=== PATIENT | male | born 1960 | race Caucasian/White ===

== ENCOUNTER 2019-06-21 17:23 | Emergency (ER) | payer OTHER ==
--- NOTE | 2019-06-21 17:49 | ERPHSYRPT ---
- History of Present Illness Time Seen by Provider: 06/21/19 17:46 Source: patient, family Exam Limitations: no limitations Patient Subjective Stated Complaint: pt reports hypotension, recent addition of blood pressure medication. states he is now taking lisinopril 5mg daily. states early today he was feeling dizzy but denies that symptom at this time. daughter recorded blood pressure prior to arrival at 90/60. Triage Nursing Assessment: pt is aox3, pt ambulates to trt room w steady gait. pupils perrl, afebrile, resps easy and non labored, radial pulses strong and equal, cap refill < 3 seconds, pt skin pink warm dry. feeding tube in place to mid abdomen. Physician History: Mr Stewart is a 59 years old male states early today he was feeling dizzy but denies that symptom at this time. daughter recorded blood pressure prior to arrival at 90/60. Timing/Duration: today Associated Symptoms: other (dizziness, light headedness), No chest pain Allergies/Adverse Reactions: No Known Drug Allergies Allergy (Unverified 06/21/19 17:49) Home Medications: Atorvastatin Calcium [Lipitor] 40 mg PO DAILY 06/21/19 [History] Lisinopril [Zestril] 5 mg PO DAILY 06/21/19 [History] hydroCHLOROthiazide [Hydrochlorothiazide] 12.5 mg PO DAILY 06/21/19 [History] Hx Tetanus, Diphtheria Vaccination/Date Given: (unk) Hx Influenza Vaccination/Date Given: No Hx Pneumococcal Vaccination/Date Given: No Immunizations Up to Date: Yes - Review of Systems Constitutional: No Fever, No Chills Eyes: No Symptoms Ears, Nose, & Throat: No Symptoms Respiratory: No Cough, No Dyspnea Cardiac: Other (lightheadedness and low blood pressure), No Chest Pain, No Edema , No Palpitations, No Syncope Abdominal/Gastrointestinal: No Abdominal Pain, No Nausea, No Vomiting, No Diarrhea Genitourinary Symptoms: No Dysuria Musculoskeletal: No Back Pain, No Neck Pain Skin: No Rash Neurological: Dizziness, No Focal Weakness, No Sensory Changes Psychological: No Symptoms Endocrine: No Symptoms All Other Systems: Reviewed and Negative - Past Medical History Pertinent Past Medical History: Yes Cardiac History: High Cholesterol, Hypertension Other Medical History: ORAL CANCER Nov 2018 - Past Surgical History Past Surgical History: Yes Other Surgical History: oral surgery to remove cancer w tongue reconstruction - Social History Smoking Status: Former smoker Drug Use: none Patient Lives Alone: No - Nursing Vital Signs Nursing Vital Signs: Initial Vital Signs Temperature 97.4 F 06/21/19 17:33 Pulse Rate 69 06/21/19 17:33 Respiratory Rate 20 06/21/19 17:33 Blood Pressure 109/91 06/21/19 17:33 O2 Sat by Pulse Oximetry 95 06/21/19 17:33 Pain Scale Pain Intensity 0 - Physical Exam General Appearance: no apparent distress, alert Eye Exam: PERRL/EOMI, eyes nml inspection Ears, Nose, Throat Exam: normal ENT inspection, TMs normal, pharynx normal, moist mucous membranes Neck Exam: normal inspection, non-tender, supple, full range of motion Respiratory Exam: normal breath sounds, lungs clear, No respiratory distress Cardiovascular Exam: regular rate/rhythm, normal heart sounds, normal peripheral pulses Gastrointestinal/Abdomen Exam: soft, normal bowel sounds, No tenderness, No mass Back Exam: normal inspection, normal range of motion, No CVA tenderness, No vertebral tenderness Extremity Exam: normal inspection, normal range of motion, pelvis stable Neurologic Exam: alert, oriented x 3, cooperative, normal mood/affect, nml cerebellar function, nml station & gait, sensation nml, No motor deficits Skin Exam: normal color, warm, dry, No rash Lymphatic Exam: No adenopathy SpO2: 95 - Course Nursing assessment & vital signs reviewed: Yes EKG Interpreted by Me: Sinus Rhythm Ordered Tests: Medication Summary Discontinued Medications Generic Name Dose Route Start Last Admin Trade Name Jovana PRN Reason Stop Dose Admin Potassium Bicarbonate 50 meq 06/21/19 18:18 06/21/19 18:33 K-Lyte 25 Meq PO 06/21/19 18:19 50 meq STAT ONE Administration Potassium Bicarbonate Confirm 06/21/19 18:28 K-Lyte 25 Meq Administered 06/21/19 18:29 Dose 50 meq .ROUTE .STK-MED ONE Lab/Rad Data: Laboratory Result Diagrams 06/21/19 17:52 06/21/19 17:52 Laboratory Results 06/21/19 06/21/19 06/21/19 Range/Units 17:52 17:52 17:52 WBC 10.0 (4.0-10.5) K/mm3 RBC 3.46 L (4.1-5.6) M/mm3 Hgb 12.0 L (12.5-18.0) gm/dl Hct 34.9 L (42-50) % MCV 100.9 H (78-100) fl MCH 34.6 H (26-32) pg MCHC 34.4 (32-36) g/dl RDW 12.3 (11.5-14.0) % Plt Count 182 (150-450) K/mm3 MPV 8.7 (6-9.5) fl Gran % 67.5 H (36.0-66.0) % Eos # (Auto) 0.18 (0-0.5) Absolute Lymphs (auto) 1.69 (1.0-4.6) Absolute Monos (auto) 1.37 H (0.0-1.3) Lymphocytes % 16.8 L (24.0-44.0) % Monocytes % 13.7 H (0.0-12.0) % Eosinophils % 1.8 (0.00-5.0) % Basophils % 0.2 (0.0-0.4) % Absolute Granulocytes 6.77 (1.4-6.9) Basophils # 0.02 (0-0.4) Sodium 138 (137-145) mmol/L Potassium 3.3 L (3.5-5.1) mmol/L Chloride 99 (98-107) mmol/L Carbon Dioxide 27 (22-30) mmol/L Anion Gap 15.2 H (5-15) MEQ/L BUN 14 (9-20) mg/dL Creatinine 1.38 H (0.66-1.25) mg/dL Estimated GFR 55.7 ML/MIN Glucose 130 H (74-106) mg/dL Calcium 9.2 (8.4-10.2) mg/dL Total Bilirubin 0.40 (0.2-1.3) mg/dL AST 43 (17-59) U/L ALT 26 (0-50) U/L Alkaline Phosphatase 73 (38-126) U/L Troponin I < 0.012 (0.000-0.034) ng/mL NT-Pro-B Natriuret Pep 458 (0-900) pg/mL Serum Total Protein 7.6 (6.3-8.2) g/dL Albumin 4.4 (3.5-5.0) g/dL - Progress Progress: improved Counseled pt/family regarding: lab results, diagnosis, need for follow-up - Departure Departure Disposition: Home Clinical Impression: Hypotension due to drugs CAD (coronary artery disease) Qualifiers: Coronary Disease-Associated Artery/Lesion type: [place] artery [place] vs. transplanted heart: [place] heart Associated angina: without angina Qualified Code(s): I25.10 - Atherosclerotic heart disease of [place] coronary artery without angina pectoris Condition: Stable Critical Care Time: No Referrals: DOCTOR,NO FAMILY [Primary Care Provider] - Instructions: Orthostatic Hypotension (DC), Low Blood Pressure (DC) Additional Instructions: Discharge/Care Plan LARA ALFRED was seen on 06/21/19 in the Emergency Room. The patient was counseled regarding Diagnosis,Lab results, Imaging studies, need for follow up and when to return to the Emergency Room. Prescriptions given: Discharge Note I have spoken with the patient and/or caregivers. I have explained the patient' s condition, diagnosis and treatment plan based on the information available to me at this time. I have answered the patient's and/or caregiver's questions and addressed any concerns. The patient and/or caregivers have as good understanding of the patient's diagnosis, condition and treatment plan as can be expected at this point. The vital signs have been stable. The patient's condition is stable and appropriate for discharge from the emergency department. The patient will pursue further outpatient evaluation with the primary care physician or other designated or consulting physician as outlined in the discharge instructions. The patient and/or caregivers are agreeable to this plan of care and follow-up instructions have been explained in detail. The patient and/or caregivers have received these instruction. The patient/and or caregivers are aware that any significant change in condition or worsening of symptoms should prompt an immediate return to this or the closest emergency department or call 911. Decrease lisinopril to 2.5 mg orally in Morning with hydrochlorothiazide 25 mg in morning, Take atrovastatin at night. Follow up with your primary care physician in next 2-3 days Prescriptions: Potassium Chloride [K-Dur] 10 meq PO DAILY #30 [email or web address]
[2019-06-21 17:55] LABS: BASOPHIL % 0.2 % (0.0-0.4); Basophil (Absolute #) 0.02 (0-0.4); Eosinophil % 1.8 % (0.00-5.0); Eosinophil (Absolute #) 0.18 (0-0.5); Granulocyte Absolute (ANC) 6.77 (1.4-6.9); Granulocytes % 67.5 % (36.0-66.0); Hematocrit 34.9 % (42-50); Lymphocyte (Absolute #) 1.69 (1.0-4.6); Lymphocytes % 16.8 % (24.0-44.0); Mean Cell Volume 100.9 fl (78-100); Mean Corpuscular Hgb Concent. 34.4 g/dl (32-36); Mean Platelet Volume 8.7 fl (6-9.5); Monocyte (Absolute #) 1.37 (0.0-1.3); Monocytes % 13.7 % (0.0-12.0); Platelet Count 182 K/mm3 (150-450); Red Blood Count 3.46 M/mm3 (4.1-5.6); Red Cell Distribution Width 12.3 % (11.5-14.0)
[2019-06-21 17:56] LABS: Mean Corpuscular Hemoglobin 34.6 pg (26-32)
[2019-06-21 18:11] VITALS: BP 99/59; PULSE 62
[2019-06-21 18:13] LABS: ALBUMIN 4.4 g/dL (3.5-5.0); ANION GAP 15.2 MEQ/L (5-15); BILIRUBIN,TOTAL 0.4 mg/dL (0.2-1.3); Calcium 9.2 mg/dL (8.4-10.2); Creatinine 1 1.38 mg/dL (0.66-1.25); Potassium 3.3 mmol/L (3.5-5.1); Total Protein 7.6 g/dL (6.3-8.2)
[2019-06-21] MEDS ORDERED: K-LYTE 25 MEQ PO ONE (18:18)
[2019-06-21 18:20] VITALS: O2SAT 95
[2019-06-21] MEDS ORDERED: K-LYTE 25 MEQ ONE (18:28)
== END 2019-06-21 19:00 | disposition home or self-care (01) ==
LOC: ED 17:23
DX: I95.2 Hypotension due to drugs (principal); I25.10 Atherosclerotic heart disease of native coronary artery without angina pectoris
CPT/HCPCS: 36415; 80053; 83880; 84484; 85025; 93005; 93041; 99284; 99291; A9270-GY

== ENCOUNTER 2021-08-06 16:55 | Observation (INO) | payer OTHER ==
[2021-08-06] MEDS ORDERED: BABY ASPIRIN 81 MG CHEW PO ONE (17:27)
--- NOTE | 2021-08-06 17:33 | ERPHSYRPT ---
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 pt reports pain goes from 0 to 10 intermittently and pain is intense and sharp when occuring. pt denies any sob or chest pain Triage Nursing Assessment: pt to er left shoulder pain pt arrives p/w/d resp easy a@ox3. pt speech garbled though states has been drinking today. pt jaundice w/d resp easy a@ox3. pt has son here driving him Physician History: 61 years old male with history of tobacco abuse, alcohol abuse, hypertension presented in the ER with chief complaint of left shoulder pain sudden onset around 1 PM today while he was pulling nails out of a board. Intermittent, sharp moderate to severe intensity without any significant aggravating or relieving factors, last for few seconds to minutes and improves. Denies any difficulty movements of left shoulder are any tender points. No previous history of shoulder injuries. Denies any chest pain, palpitations or shortness of breath. Patient is a heavy drinker and last drink was prior to arrival. Timing/Duration: hour(s) (5), intermittent, sudden, improved Severity: moderate Modifying Factors: Improves With: rest Associated Symptoms: denies symptoms Allergies/Adverse Reactions: No Known Drug Allergies Allergy (Verified 08/06/21 16:58) Home Medications: Omeprazole 40 mg PO DAILY 08/06/21 [History] Hx Tetanus, Diphtheria Vaccination/Date Given: No Hx Influenza Vaccination/Date Given: Yes (08/03/21) Hx Pneumococcal Vaccination/Date Given: No Travel Risk - International Travel Have you traveled outside of the country in past 3 weeks: No - Coronavirus Screening Are you exhibiting any of the following symptoms?: No Close contact with a COVID-19 positive Pt in past 14-21 Days: No - Vaccine Status Have you recieved a Covid-19 vaccination: Yes [employer]: [employer] - Vaccination Dates Date of 2cond Vaccination (if applicable): 01/13/21 - Review of Systems Constitutional: No Symptoms Eyes: No Symptoms Ears, Nose, & Throat: No Symptoms Respiratory: No Symptoms Cardiac: No Symptoms Abdominal/Gastrointestinal: No Symptoms Genitourinary Symptoms: No Symptoms Musculoskeletal: Joint Pain Skin: No Symptoms Neurological: No Symptoms Psychological: Anxiety Endocrine: No Symptoms Hematologic/Lymphatic: No Symptoms Immunological/Allergic: No Symptoms - Past Medical History Pertinent Past Medical History: Yes Cardiac History: High Cholesterol, Hypertension Other Medical History: ORAL CANCER Nov 2018 - Past Surgical History Past Surgical History: Yes Other Surgical History: oral surgery to remove cancer w tongue reconstruction 11/2018 - Social History Smoking Status: Current every day smoker Drug Use: none Patient Lives Alone: No - Nursing Vital Signs Nursing Vital Signs: Initial Vital Signs Temperature 98.2 F 08/06/21 17:00 Pulse Rate 88 08/06/21 17:00 Respiratory Rate 18 08/06/21 17:00 Blood Pressure 186/124 08/06/21 17:00 O2 Sat by Pulse Oximetry 100 08/06/21 17:00 Pain Scale Pain Intensity 5 - Physical Exam General Appearance: no apparent distress Eye Exam: PERRL/EOMI Ears, Nose, Throat Exam: normal ENT inspection, pharynx normal Neck Exam: normal inspection, supple, full range of motion Respiratory Exam: normal breath sounds, lungs clear Cardiovascular Exam: regular rate/rhythm, normal heart sounds Gastrointestinal/Abdomen Exam: soft, normal bowel sounds Back Exam: normal inspection, normal range of motion, No CVA tenderness Extremity Exam: normal inspection, normal range of motion, pelvis stable Neurologic Exam: alert, oriented x 3, cooperative Skin Exam: normal color SpO2 Interpretation: normal SpO2: 100 O2 Delivery: Room Air - Course EKG Interpreted by Me: RATE (87), Sinus Rhythm, NORMAL AXIS, NORMAL INTERVALS, Other (PACs) Ordered Tests: Active Orders 24 hr Category Date Time Status Clinical Laboratory Manager STAT Care 08/06/21 17:28 Active EKG-ER Only STAT Care 08/06/21 17:27 Active IV Insertion STAT Care 08/06/21 17:27 Active CHEST 1 VIEW (PORTABLE) Stat Exams 08/06/21 17:28 Taken SHOULDER Stat Exams 08/06/21 Taken CBC W DIFF Stat Lab 08/06/21 17:27 Completed CK-Creatinine Phosphokinase Routine Lab 08/06/21 17:30 Completed CMP Routine Lab 08/06/21 17:30 Completed ETHYL ALCOHOL Routine Lab 08/06/21 17:30 Completed NT PRO BNP Routine Lab 08/06/21 17:30 Completed TROPONIN Q3H Lab 08/06/21 17:30 Completed TROPONIN Q3H Lab 08/06/21 20:30 Ordered TROPONIN Q3H Lab 08/06/21 23:30 Ordered TROPONIN Q3H Lab 08/07/21 02:30 Ordered TROPONIN Q3H Lab 08/07/21 05:30 Ordered Medication Summary Discontinued Medications Generic Name Dose Route Start Last Admin Trade Name Jovana PRN Reason Stop Dose Admin Aspirin 324 mg 08/06/21 17:27 08/06/21 17:36 Aspirin 81 Mg Tab.Chew PO 08/06/21 17:28 324 mg STAT ONE Administration Ketorolac Tromethamine 30 mg 08/06/21 19:01 08/06/21 19:08 Ketorolac Tromethamine 30 Mg/Ml Inj IV 08/06/21 19:02 30 mg STAT ONE Administration Ketorolac Tromethamine Confirm 08/06/21 19:05 Ketorolac Tromethamine 30 Mg/Ml Inj Administered 08/06/21 19:06 Dose 30 mg .ROUTE .STK-MED ONE Lab/Rad Data: Laboratory Result Diagrams 08/06/21 17:27 08/06/21 17:30 Laboratory Results 08/06/21 08/06/21 Range/Units 17:30 17:27 WBC 7.0 (4.0-10.5) K/mm3 RBC 3.65 L (4.1-5.6) M/mm3 Hgb 12.4 L (12.5-18.0) gm/dl Hct 37.3 L (42-50) % MCV 102.2 H (78-100) fl MCH 34.0 H (26-32) pg MCHC 33.2 (32-36) g/dl RDW 13.1 (11.5-14.0) % Plt Count 237 (150-450) K/mm3 MPV 9.0 (7.5-11.0) fl Gran % 47.9 (36.0-66.0) % Eos # (Auto) 0.18 (0-0.5) Absolute Lymphs (auto) 2.57 (1.0-4.6) Absolute Monos (auto) 0.85 (0.0-1.3) Lymphocytes % 36.9 (24.0-44.0) % Monocytes % 12.2 H (0.0-12.0) % Eosinophils % 2.6 (0.00-5.0) % Basophils % 0.4 (0.0-0.4) % Absolute Granulocytes 3.34 (1.4-6.9) Basophils # 0.03 (0-0.4) Sodium 138 (137-145) mmol/L Potassium 3.8 (3.5-5.1) mmol/L Chloride 100 (98-107) mmol/L Carbon Dioxide 25 (22-30) mmol/L Anion Gap 16.1 H (5-15) MEQ/L BUN 11 (9-20) mg/dL Creatinine 0.75 (0.66-1.25) mg/dL Estimated GFR > 60.0 ML/MIN Glucose 92 (74-106) mg/dL Calcium 9.4 (8.4-10.2) mg/dL Total Bilirubin 0.30 (0.2-1.3) mg/dL AST 40 (17-59) U/L ALT 21 (0-50) U/L Alkaline Phosphatase 57 (38-126) U/L Creatine Kinase 86 (55-170) U/L Troponin I < 0.012 (0.000-0.034) ng/mL NT-Pro-B Natriuret Pep 113 (0-900) pg/mL Serum Total Protein 7.5 (6.3-8.2) g/dL Albumin 4.5 (3.5-5.0) g/dL Ethyl Alcohol 173 H (0-10) mg/dL - Progress Progress: improved, re-examined Progress Note: 08/06/21 19:35 Patient's initial chest pain work-up is negative with EKG showing sinus rhythm without any ST elevations. Initial troponins negative. Grossly unremarkable chemistries. Chest x-ray and x-ray her left shoulder reviewed by me did not reveal any obvious abnormality. Official report is pending. Given symptomatic treatment, feeling better. Does not have any reproducibility or point tenderness in the left shoulder pain. Patient does have multiple risk factors for CAD and never had any kind of cardiac work-up done in the past. This pain could be cardiac in nature until ruled out. Also has a blood alcohol of 170s. We'll give him Ativan as needed. Recommended observation admission which patient agreed. Discussed with Dr. Wick, reviewed history, work-up and patient is accepted for observation admission. Discussed with .: Chaitanya Will see patient in: hospital (observation) Counseled pt/family regarding: lab results, diagnosis, rad results - Departure Departure Disposition: Observation Clinical Impression: Chest pain, rule out acute myocardial infarction, Alcohol abuse Condition: Stable Critical Care Time: No Referrals: DOCTOR,NO FAMILY [Primary Care Provider] -
[2021-08-06 17:41] LABS: Absolute Neutrophil Ct (ANC) 3.34 (1.4-6.9); BASOPHIL % 0.4 % (0.0-0.4); Basophil (Absolute #) 0.03 (0-0.4); Eosinophil % 2.6 % (0.00-5.0); Eosinophil (Absolute #) 0.18 (0-0.5); Hematocrit 37.3 % (42-50); Hemoglobin 12.4 gm/dl (12.5-18.0); Lymphocyte (Absolute #) 2.57 (1.0-4.6); Lymphocytes % 36.9 % (24.0-44.0); Mean Cell Volume 102.2 fl (78-100); Mean Corpuscular Hgb Concent. 33.2 g/dl (32-36); Monocyte (Absolute #) 0.85 (0.0-1.3); Monocytes % 12.2 % (0.0-12.0); Neutrophil % 47.9 % (36.0-66.0); Platelet Count 237 K/mm3 (150-450); Red Blood Count 3.65 M/mm3 (4.1-5.6); Red Cell Distribution Width 13.1 % (11.5-14.0)
[2021-08-06 18:04] LABS: ALBUMIN 4.5 g/dL (3.5-5.0); ALKALINE PHOSPHATASE 57 U/L (38-126); ANION GAP 16.1 MEQ/L (5-15); BLOOD UREA NITROGEN 11 mg/dL (9-20); CHLORIDE 100 mmol/L (98-107); CK-Creatinine Phosphokinase 86 U/L (55-170); Calcium 9.4 mg/dL (8.4-10.2); Carbon Dioxide 25 mmol/L (22-30); Creatinine 1 0.75 mg/dL (0.66-1.25); EST GLOMERULAR FILTRATION RATE > 60.0 ML/MIN; ETHYL ALCOHOL 173 mg/dL (0-10); Glucose 92 mg/dL (74-106); NT PRO BNP 113 pg/mL (0-900); Potassium 3.8 mmol/L (3.5-5.1); SGOT/AST 40 U/L (17-59); SGPT/ALT 21 U/L (0-50); SODIUM 138 mmol/L (137-145); TROPONIN < 0.012 ng/mL (0.000-0.034); Total Protein 7.5 g/dL (6.3-8.2)
[2021-08-06] MEDS ORDERED: TORAdol 30 mg Injection IV ONE (19:01)
[2021-08-06] MEDS ORDERED: TORAdol 30 mg Injection ONE (19:05)
--- NOTE | 2021-08-06 21:19 | XRAY ---
Indication: Pain. Comparison: None 3 view left shoulder demonstrates osteopenia, old mid clavicle fracture, and multiple neck surgical clips. No other bony, articular, or soft tissue abnormalities.
--- NOTE | 2021-08-06 21:24 | XRAY ---
Indication: Chest and left shoulder pain. Comparison: None Portable chest hyperinflated and clear with incidental tiny left apical calcified granuloma. Heart not enlarged. Bony thorax intact with mild osteopenia, old left clavicle fracture, multiple surgical clips base of neck, and right axilla metallic BB. Impression: Nonacute hyperinflated chest with chronic features.
[2021-08-06] MEDS ORDERED: DUONEB 0.5-3 MG/3 ml Neb IH PRN (21:29)
[2021-08-06] MEDS ORDERED: Zofran 4 MG/2 ML VIAL IV PRN (21:29)
[2021-08-06] MEDS ORDERED: Sodium Chloride 0.9% 1000 ML 1,000 ML IV SCH (21:29)
[2021-08-06] MEDS ORDERED: TYLENOL 325 MG PO PRN (21:29)
[2021-08-06] MEDS ORDERED: Ativan 2 MG/1 ML VIAL IV PRN (21:29)
[2021-08-06] MEDS ORDERED: Hydromorphone 1 mg/ml Injection IV PRN (21:29)
[2021-08-07 06:09] LABS: Absolute Neutrophil Ct (ANC) 2.69 (1.4-6.9); BASOPHIL % 0.5 % (0.0-0.4); Basophil (Absolute #) 0.03 (0-0.4); Eosinophil % 4.5 % (0.00-5.0); Eosinophil (Absolute #) 0.25 (0-0.5); Hematocrit 39.9 % (42-50); Hemoglobin 13.3 gm/dl (12.5-18.0); Lymphocyte (Absolute #) 1.87 (1.0-4.6); Lymphocytes % 33.6 % (24.0-44.0); Mean Cell Volume 102.8 fl (78-100); Mean Corpuscular Hemoglobin 34.3 pg (26-32); Mean Corpuscular Hgb Concent. 33.3 g/dl (32-36); Mean Platelet Volume 9.4 fl (7.5-11.0); Monocyte (Absolute #) 0.73 (0.0-1.3); Monocytes % 13.1 % (0.0-12.0); Neutrophil % 48.3 % (36.0-66.0); Platelet Count 235 K/mm3 (150-450); Red Blood Count 3.88 M/mm3 (4.1-5.6); White Blood Count 5.6 K/mm3 (4.0-10.5)
[2021-08-07 06:30] LABS: ALKALINE PHOSPHATASE 44 U/L (38-126); ANION GAP 14.4 MEQ/L (5-15); BLOOD UREA NITROGEN 14 mg/dL (9-20); CHLORIDE 103 mmol/L (98-107); Calcium 9.4 mg/dL (8.4-10.2); Carbon Dioxide 27 mmol/L (22-30); Creatinine 1 0.67 mg/dL (0.66-1.25); EST GLOMERULAR FILTRATION RATE > 60.0 ML/MIN; Glucose 83 mg/dL (74-106); Potassium 4.7 mmol/L (3.5-5.1); SGOT/AST 39 U/L (17-59); SGPT/ALT 20 U/L (0-50); SODIUM 140 mmol/L (137-145); Total Protein 6.7 g/dL (6.3-8.2)
[2021-08-07 07:59] VITALS: BP 176/83; PULSE 72; O2SAT 96
--- NOTE | 2021-08-07 09:49 | PCM.SSS ---
History of Present Illness - Chief Complaint Chief Complaint: rule out chest pain History of Present Illness: is a 61 year old male who presented to the ER with intermittent left shoulder pain, doesn't have pain with movement until the pain will come on suddenly then it hurts to move, he denies pain in his chest, no nausea/vomiting or diaphoresis associated with the pain, it is irregular and infrequent. he was also apparently intoxicated in the ER with elevation of JULIA, in any event he is pain free today, he is dressed on the side of the bed when I arrive to his room and wants to go home immediately, states he feels well. recently saw Dr Gill for the first visit, denies any history of CAD, he is a heavy smoker and history of htn, multiple risk factors. - Review of Systems Constitutional: No Fever, No Chills Respiratory: No Cough, No Short Of Breath Cardiac: No Chest Pain (shoulder pain) Abdominal/Gastrointestinal: No Abdominal Pain, No Nausea, No Vomiting, No Diarrhea Genitourinary Symptoms: No Dysuria Skin: No Rash All Other Systems: Reviewed and Negative Medications & Allergies Home Medications: Home Medication List Omeprazole 40 mg PO DAILY 08/06/21 [History Confirmed 08/06/21] Allergies/Adverse Reactions: Allergies Allergy/AdvReac Type Severity Reaction Status Date / Time No Known Drug Allergies Allergy Verified 08/06/21 16:58 - Past Medical History Past Medical History: Yes Neurological History: No Pertinent History ENT History: No Pertinent History Cardiac History: High Cholesterol, Hypertension Endocrine Medical History: No Pertinent History Musculoskelatal History: Arthritis GI Medical History: GERD History: No Pertinent History Pyscho-Social History: No Pertinent History Male Reproductive Disorders: No Pertinent History Comment: ORAL CANCER Nov 2018 - Past Surgical History Past Surgical History: Yes Cardiac History: No Pertinent History Respiratory Surgery: No Pertinent History GI Surgical History: No Pertinent History Genitourinary Surgical Hx: No Pertinent History Musculskeletal Surgical Hx: No Pertinent History Male Surgical History: No Pertinent History Other Surgical History: oral surgery to remove cancer w tongue reconstruction 11/2018 - Social History Smoking Status: Heavy tobacco smoker How long have you smoked: 50 Alcohol: Daily Drug Use: none - Physical Exam Vital Signs: Vital Signs - 24 hr Temp Pulse Resp BP BP Pulse Ox 08/07/21 07:58 98.9 F 72 14 176/83 96 08/07/21 04:00 97.5 F 75 16 173/82 97 08/06/21 22:41 81 16 94 L 08/06/21 21:38 97.8 F 73 18 166/77 98 08/06/21 19:37 100 08/06/21 19:02 77 24 150/80 98 08/06/21 17:00 98.2 F 88 18 186/124 100 General Appearance: no apparent distress, alert Neurologic Exam: alert, oriented x 3, cooperative, normal mood/affect, nml cerebellar function, nml station & gait, sensation nml, No motor deficits Respiratory Exam: normal breath sounds, lungs clear, No respiratory distress Cardiovascular Exam: regular rate/rhythm, normal heart sounds, normal peripheral pulses Gastrointestinal/Abdomen Exam: soft, normal bowel sounds, No tenderness, No mass Extremity Exam: other (full rom to left shoulder and arm) Skin Exam: normal color, warm, dry, No rash Results - Labs Lab/Micro Results: Lab Results-Last 24 Hours 08/06/21 08/06/21 08/06/21 Range/Units 17:27 17:30 19:56 WBC 7.0 (4.0-10.5) K/mm3 RBC 3.65 L (4.1-5.6) M/mm3 Hgb 12.4 L (12.5-18.0) gm/dl Hct 37.3 L (42-50) % MCV 102.2 H (78-100) fl MCH 34.0 H (26-32) pg MCHC 33.2 (32-36) g/dl RDW 13.1 (11.5-14.0) % Plt Count 237 (150-450) K/mm3 MPV 9.0 (7.5-11.0) fl Gran % 47.9 (36.0-66.0) % Eos # (Auto) 0.18 (0-0.5) Absolute Lymphs (auto) 2.57 (1.0-4.6) Absolute Monos (auto) 0.85 (0.0-1.3) Lymphocytes % 36.9 (24.0-44.0) % Monocytes % 12.2 H (0.0-12.0) % Eosinophils % 2.6 (0.00-5.0) % Basophils % 0.4 (0.0-0.4) % Absolute Granulocytes 3.34 (1.4-6.9) Basophils # 0.03 (0-0.4) Sodium 138 (137-145) mmol/L Potassium 3.8 (3.5-5.1) mmol/L Chloride 100 (98-107) mmol/L Carbon Dioxide 25 (22-30) mmol/L Anion Gap 16.1 H (5-15) MEQ/L BUN 11 (9-20) mg/dL Creatinine 0.75 (0.66-1.25) mg/dL Estimated GFR > 60.0 ML/MIN Glucose 92 (74-106) mg/dL Calcium 9.4 (8.4-10.2) mg/dL Total Bilirubin 0.30 (0.2-1.3) mg/dL AST 40 (17-59) U/L ALT 21 (0-50) U/L Alkaline Phosphatase 57 (38-126) U/L Creatine Kinase 86 (55-170) U/L Troponin I < 0.012 (0.000-0.034) ng/mL NT-Pro-B Natriuret Pep 113 (0-900) pg/mL Serum Total Protein 7.5 (6.3-8.2) g/dL Albumin 4.5 (3.5-5.0) g/dL Ethyl Alcohol 173 H (0-10) mg/dL SARS-CoV-2 (PCR) NEGATIVE (NEGATIVE) 08/06/21 08/06/21 08/07/21 Range/Units 20:00 23:34 02:34 WBC (4.0-10.5) K/mm3 RBC (4.1-5.6) M/mm3 Hgb (12.5-18.0) gm/dl Hct (42-50) % MCV (78-100) fl MCH (26-32) pg MCHC (32-36) g/dl RDW (11.5-14.0) % Plt Count (150-450) K/mm3 MPV (7.5-11.0) fl Gran % (36.0-66.0) % Eos # (Auto) (0-0.5) Absolute Lymphs (auto) (1.0-4.6) Absolute Monos (auto) (0.0-1.3) Lymphocytes % (24.0-44.0) % Monocytes % (0.0-12.0) % Eosinophils % (0.00-5.0) % Basophils % (0.0-0.4) % Absolute Granulocytes (1.4-6.9) Basophils # (0-0.4) Sodium (137-145) mmol/L Potassium (3.5-5.1) mmol/L Chloride (98-107) mmol/L Carbon Dioxide (22-30) mmol/L Anion Gap (5-15) MEQ/L BUN (9-20) mg/dL Creatinine (0.66-1.25) mg/dL Estimated GFR ML/MIN Glucose (74-106) mg/dL Calcium (8.4-10.2) mg/dL Total Bilirubin (0.2-1.3) mg/dL AST (17-59) U/L ALT (0-50) U/L Alkaline Phosphatase (38-126) U/L Creatine Kinase (55-170) U/L Troponin I < 0.012 < 0.012 < 0.012 (0.000-0.034) ng/mL NT-Pro-B Natriuret Pep (0-900) pg/mL Serum Total Protein (6.3-8.2) g/dL Albumin (3.5-5.0) g/dL Ethyl Alcohol (0-10) mg/dL SARS-CoV-2 (PCR) (NEGATIVE) 08/07/21 08/07/21 08/07/21 Range/Units 05:40 05:40 05:40 WBC 5.6 (4.0-10.5) K/mm3 RBC 3.88 L (4.1-5.6) M/mm3 Hgb 13.3 (12.5-18.0) gm/dl Hct 39.9 L (42-50) % MCV 102.8 H (78-100) fl MCH 34.3 H (26-32) pg MCHC 33.3 (32-36) g/dl RDW 13.0 (11.5-14.0) % Plt Count 235 (150-450) K/mm3 MPV 9.4 (7.5-11.0) fl Gran % 48.3 (36.0-66.0) % Eos # (Auto) 0.25 (0-0.5) Absolute Lymphs (auto) 1.87 (1.0-4.6) Absolute Monos (auto) 0.73 (0.0-1.3) Lymphocytes % 33.6 (24.0-44.0) % Monocytes % 13.1 H (0.0-12.0) % Eosinophils % 4.5 (0.00-5.0) % Basophils % 0.5 (0.0-0.4) % Absolute Granulocytes 2.69 (1.4-6.9) Basophils # 0.03 (0-0.4) Sodium 140 (137-145) mmol/L Potassium 4.7 D (3.5-5.1) mmol/L Chloride 103 (98-107) mmol/L Carbon Dioxide 27 (22-30) mmol/L Anion Gap 14.4 (5-15) MEQ/L BUN 14 (9-20) mg/dL Creatinine 0.67 (0.66-1.25) mg/dL Estimated GFR > 60.0 ML/MIN Glucose 83 (74-106) mg/dL Calcium 9.4 (8.4-10.2) mg/dL Total Bilirubin 0.80 (0.2-1.3) mg/dL AST 39 (17-59) U/L ALT 20 (0-50) U/L Alkaline Phosphatase 44 (38-126) U/L Creatine Kinase (55-170) U/L Troponin I < 0.012 (0.000-0.034) ng/mL NT-Pro-B Natriuret Pep (0-900) pg/mL Serum Total Protein 6.7 (6.3-8.2) g/dL Albumin 4.0 (3.5-5.0) g/dL Ethyl Alcohol (0-10) mg/dL SARS-CoV-2 (PCR) (NEGATIVE) - Radiology Impressions Radiology Exams & Impressions: Radiology Procedures Category Date Time Status CHEST 1 VIEW (PORTABLE) Stat Exams 08/06/21 17:28 Completed SHOULDER Stat Exams 08/06/21 Completed Assessment/Plan (1) Chest pain, rule out acute myocardial infarction Current Visit: Yes Status: Acute Assessment & Plan: [place] ruled out but needs further workup as outpatient, patient does not want to stay in the hospital for any further testing, very impatient to go home. patient was ordered fasting labwork by Dr Gill including lipid panel on 08/02, needs to have this done and f/u for further workup, pain seems noncardiac and likely musculoskeletal in etiology but he has multiple risk factors so needs to f/u Code(s): R07.9 - CHEST PAIN, UNSPECIFIED (2) Alcohol abuse Current Visit: Yes Status: Acute Code(s): F10.10 - ALCOHOL ABUSE, UNCOMPLICATED Hospital Summary - Vitals & Intake/Output Vital Signs: Vital Signs Temperature 98.9 F 08/07/21 07:58 Pulse Rate 72 08/07/21 07:58 Respiratory Rate 14 08/07/21 07:58 Blood Pressure 176/83 08/07/21 07:58 O2 Sat by Pulse Oximetry 96 08/07/21 07:58 Intake & Output: Intake & Output 08/04/21 08/05/21 08/06/21 08/07/21 11:59 11:59 11:59 11:59 Intake Total 580 Balance 580 Weight 62.8 kg - Lab Result Diagrams: 08/07/21 05:40 08/07/21 05:40 Lab Results-Last 24 Hrs: Lab Results-Last 24 Hours 08/06/21 08/06/21 08/06/21 Range/Units 17:27 17:30 19:56 WBC 7.0 (4.0-10.5) K/mm3 RBC 3.65 L (4.1-5.6) M/mm3 Hgb 12.4 L (12.5-18.0) gm/dl Hct 37.3 L (42-50) % MCV 102.2 H (78-100) fl MCH 34.0 H (26-32) pg MCHC 33.2 (32-36) g/dl RDW 13.1 (11.5-14.0) % Plt Count 237 (150-450) K/mm3 MPV 9.0 (7.5-11.0) fl Gran % 47.9 (36.0-66.0) % Eos # (Auto) 0.18 (0-0.5) Absolute Lymphs (auto) 2.57 (1.0-4.6) Absolute Monos (auto) 0.85 (0.0-1.3) Lymphocytes % 36.9 (24.0-44.0) % Monocytes % 12.2 H (0.0-12.0) % Eosinophils % 2.6 (0.00-5.0) % Basophils % 0.4 (0.0-0.4) % Absolute Granulocytes 3.34 (1.4-6.9) Basophils # 0.03 (0-0.4) Sodium 138 (137-145) mmol/L Potassium 3.8 (3.5-5.1) mmol/L Chloride 100 (98-107) mmol/L Carbon Dioxide 25 (22-30) mmol/L Anion Gap 16.1 H (5-15) MEQ/L BUN 11 (9-20) mg/dL Creatinine 0.75 (0.66-1.25) mg/dL Estimated GFR > 60.0 ML/MIN Glucose 92 (74-106) mg/dL Calcium 9.4 (8.4-10.2) mg/dL Total Bilirubin 0.30 (0.2-1.3) mg/dL AST 40 (17-59) U/L ALT 21 (0-50) U/L Alkaline Phosphatase 57 (38-126) U/L Creatine Kinase 86 (55-170) U/L Troponin I < 0.012 (0.000-0.034) ng/mL NT-Pro-B Natriuret Pep 113 (0-900) pg/mL Serum Total Protein 7.5 (6.3-8.2) g/dL Albumin 4.5 (3.5-5.0) g/dL Ethyl Alcohol 173 H (0-10) mg/dL SARS-CoV-2 (PCR) NEGATIVE (NEGATIVE) 08/06/21 08/06/21 08/07/21 Range/Units 20:00 23:34 02:34 WBC (4.0-10.5) K/mm3 RBC (4.1-5.6) M/mm3 Hgb (12.5-18.0) gm/dl Hct (42-50) % MCV (78-100) fl MCH (26-32) pg MCHC (32-36) g/dl RDW (11.5-14.0) % Plt Count (150-450) K/mm3 MPV (7.5-11.0) fl Gran % (36.0-66.0) % Eos # (Auto) (0-0.5) Absolute Lymphs (auto) (1.0-4.6) Absolute Monos (auto) (0.0-1.3) Lymphocytes % (24.0-44.0) % Monocytes % (0.0-12.0) % Eosinophils % (0.00-5.0) % Basophils % (0.0-0.4) % Absolute Granulocytes (1.4-6.9) Basophils # (0-0.4) Sodium (137-145) mmol/L Potassium (3.5-5.1) mmol/L Chloride (98-107) mmol/L Carbon Dioxide (22-30) mmol/L Anion Gap (5-15) MEQ/L BUN (9-20) mg/dL Creatinine (0.66-1.25) mg/dL Estimated GFR ML/MIN Glucose (74-106) mg/dL Calcium (8.4-10.2) mg/dL Total Bilirubin (0.2-1.3) mg/dL AST (17-59) U/L ALT (0-50) U/L Alkaline Phosphatase (38-126) U/L Creatine Kinase (55-170) U/L Troponin I < 0.012 < 0.012 < 0.012 (0.000-0.034) ng/mL NT-Pro-B Natriuret Pep (0-900) pg/mL Serum Total Protein (6.3-8.2) g/dL Albumin (3.5-5.0) g/dL Ethyl Alcohol (0-10) mg/dL SARS-CoV-2 (PCR) (NEGATIVE) 08/07/21 08/07/21 08/07/21 Range/Units 05:40 05:40 05:40 WBC 5.6 (4.0-10.5) K/mm3 RBC 3.88 L (4.1-5.6) M/mm3 Hgb 13.3 (12.5-18.0) gm/dl Hct 39.9 L (42-50) % MCV 102.8 H (78-100) fl MCH 34.3 H (26-32) pg MCHC 33.3 (32-36) g/dl RDW 13.0 (11.5-14.0) % Plt Count 235 (150-450) K/mm3 MPV 9.4 (7.5-11.0) fl Gran % 48.3 (36.0-66.0) % Eos # (Auto) 0.25 (0-0.5) Absolute Lymphs (auto) 1.87 (1.0-4.6) Absolute Monos (auto) 0.73 (0.0-1.3) Lymphocytes % 33.6 (24.0-44.0) % Monocytes % 13.1 H (0.0-12.0) % Eosinophils % 4.5 (0.00-5.0) % Basophils % 0.5 (0.0-0.4) % Absolute Granulocytes 2.69 (1.4-6.9) Basophils # 0.03 (0-0.4) Sodium 140 (137-145) mmol/L Potassium 4.7 D (3.5-5.1) mmol/L Chloride 103 (98-107) mmol/L Carbon Dioxide 27 (22-30) mmol/L Anion Gap 14.4 (5-15) MEQ/L BUN 14 (9-20) mg/dL Creatinine 0.67 (0.66-1.25) mg/dL Estimated GFR > 60.0 ML/MIN Glucose 83 (74-106) mg/dL Calcium 9.4 (8.4-10.2) mg/dL Total Bilirubin 0.80 (0.2-1.3) mg/dL AST 39 (17-59) U/L ALT 20 (0-50) U/L Alkaline Phosphatase 44 (38-126) U/L Creatine Kinase (55-170) U/L Troponin I < 0.012 (0.000-0.034) ng/mL NT-Pro-B Natriuret Pep (0-900) pg/mL Serum Total Protein 6.7 (6.3-8.2) g/dL Albumin 4.0 (3.5-5.0) g/dL Ethyl Alcohol (0-10) mg/dL SARS-CoV-2 (PCR) (NEGATIVE) - Radiology Exams Ordered Rad Exams-Entire Visit: Radiology Procedures Category Date Time Status CHEST 1 VIEW (PORTABLE) Stat Exams 08/06/21 17:28 Completed SHOULDER Stat Exams 08/06/21 Completed - Procedures and Test Procedures and Tests throughout Hospitalization: Therapy Orders & Screens 08/06/21 23:35 Respiratory Therapy Assessment DAILY Comment: Diagnosis: rule out chest pain - Discharge Disposition: Home, Self-Care Condition: Stable Prescriptions: Continue Omeprazole 40 mg PO DAILY Follow up with: LUCILLE GILL DO [ACTIVE STAFF] - 1 Week
[2021-08-07] MEDS ORDERED: PROTONIX 40 MG IV IV SCH (10:00)
[2021-08-07] MEDS ORDERED: ENOXAPARIN SODIUM SQ SCH (10:00)
== END 2021-08-07 10:47 | disposition home or self-care (01) ==
LOC: ED 16:55 → MED SURG 21:27
PROVIDERS: ADMIT Family Medicine; ATTEND Family Medicine
DX: R07.9 Chest pain, unspecified (principal); M25.512 Pain in left shoulder; F10.10 Alcohol abuse, uncomplicated; I10 Essential (primary) hypertension; F17.200 Nicotine dependence, unspecified, uncomplicated; E78.00 Pure hypercholesterolemia, unspecified; Z79.899 Other long term (current) drug therapy; Z20.822 Contact with and (suspected) exposure to COVID-19
CPT/HCPCS: 36000; 36415; 71045; 73030; 80053; 82550; 83880; 84484; 85025; 93005; 93041; 93268; 94760; 96374; 99285; G0378; G0480; U0003; 80307; J1170; J1650; J1885; A9270-GY

== ENCOUNTER 2023-03-12 17:56 | Emergency (ER) | payer OTHER ==
[2023-03-12] MEDS ORDERED: Rocephin 1000 MG INJ IM ONE (19:13)
[2023-03-12] MEDS ORDERED: KEFLEX 500 MG PO ONE (19:13)
[2023-03-12] MEDS ORDERED: Rocephin 1000 MG INJ ONE (19:26)
[2023-03-12] MEDS ORDERED: XYLOCAINE 1% HCL 20 ML MDV ONE (19:26)
[2023-03-12] MEDS ORDERED: KEFLEX 500 MG ONE (19:26)
[2023-03-12 19:27] VITALS: O2SAT 96
--- NOTE | 2023-03-12 19:27 | ERPHSYRPT ---
- History of Present Illness Time Seen by Provider: 03/12/23 18:36 Source: patient Exam Limitations: no limitations Patient Subjective Stated Complaint: pt reports blisters and swelling to the left foot for 3 days, pt reports pain at a1/10 Triage Nursing Assessment: Pt ambulated back to the room, pt reports pain at a 1/10, small vesicles noted inbetween 1st and second toes and 3rd and 4th toes, 1 noted to the base of top of foot at base of 4 toe, Physician History: 62-year-old presented in the ER with chief complaint of left toes area blister with swelling of foot gradually worsening for last few days with minimal dull aching pain. Patient keeps his long shoes on most of the time. Denies any trauma or insect bite. No fever or chills reported. Timing/Duration: day(s) (3), constant, gradual onset, worse Quality: burning, painful Severity: mild Location: feet Possible Causes: no cause identified Associated Symptoms: rash Allergies/Adverse Reactions: No Known Drug Allergies Allergy (Verified 08/06/21 16:58) Home Medications: Omeprazole 40 mg PO DAILY 08/06/21 [History] Albuterol Sulfate [Albuterol Sulfate Hfa] 1 cartridge DAILY PRN PRN 03/12/23 [History] Fluticasone/Vilanterol [Fluticasone-Vilanterol 200-25] 1 canister IH DAILY 03/12/23 [History] Oxybutynin Chloride [Oxybutynin Chloride ER] 10 mg PO DAILY 03/12/23 [History] Hx Tetanus, Diphtheria Vaccination/Date Given: No Hx Influenza Vaccination/Date Given: Yes Hx Pneumococcal Vaccination/Date Given: Yes Immunizations Up to Date: Yes Travel Risk - International Travel Have you traveled outside of the country in past 3 weeks: No - Coronavirus Screening Are you exhibiting any of the following symptoms?: No Close contact with a COVID-19 positive Pt in past 14-21 Days: No - Vaccine Status Have you recieved a Covid-19 vaccination: Yes Credit Control Administrator: Moderna - Vaccination Dates Date of 2cond Vaccination (if applicable): 01/2021 - Review of Systems Constitutional: No Symptoms Ears, Nose, & Throat: No Symptoms Respiratory: No Symptoms Cardiac: No Symptoms Abdominal/Gastrointestinal: No Symptoms Musculoskeletal: No Symptoms Skin: Skin Lesions - Past Medical History Pertinent Past Medical History: Yes Neurological History: No Pertinent History ENT History: No Pertinent History Cardiac History: Hypertension Respiratory History: COPD Endocrine Medical History: No Pertinent History Musculoskeletal History: Arthritis GI Medical History: GERD History: No Pertinent History Psycho-Social History: No Pertinent History Male Reproductive Disorders: No Pertinent History Other Medical History: ORAL CANCER Nov 2018 - Past Surgical History Past Surgical History: Yes Neuro Surgical History: No Pertinent History Cardiac: No Pertinent History Respiratory: No Pertinent History Gastrointestinal: No Pertinent History Genitourinary: No Pertinent History Musculoskeletal: No Pertinent History Male Surgical History: No Pertinent History Other Surgical History: oral surgery to remove cancer w tongue reconstruction 11/2018 - Social History Smoking Status: Heavy tobacco smoker How long have you smoked: 50 Exposure to second hand smoke: Yes Drug Use: none Patient Lives Alone: No - Nursing Vital Signs Nursing Vital Signs: Initial Vital Signs Temperature 98.9 F 03/12/23 18:22 Pulse Rate 90 03/12/23 18:22 Respiratory Rate 14 03/12/23 18:22 Blood Pressure 154/89 03/12/23 18:22 Pain Scale Pain Intensity 1 - Physical Exam General Appearance: no apparent distress Eye Exam: PERRL/EOMI Neck Exam: normal inspection Respiratory Exam: normal breath sounds, lungs clear Cardiovascular Exam: regular rate/rhythm, normal heart sounds Extremity Exam: normal range of motion, swelling (Multiple areas of skin break on different toes especially on the fourth toe dorsum with erythema around and on dorsum of foot. Ulcerative lesions of the webspaces. No tenderness.) Neurologic Exam: alert, oriented x 3, cooperative Skin Exam: normal color SpO2 Interpretation: normal SpO2: 96 O2 Delivery: Room Air Ordered Tests: Medication Summary Discontinued Medications Generic Name Dose Route Start Last Admin Trade Name Freq PRN Reason Stop Dose Admin Ceftriaxone Sodium 1,000 mg 03/12/23 19:13 Ceftriaxone Sodium 1000 Mg Inj Vial IM 03/12/23 19:14 STAT ONE Cephalexin HCl 500 mg 03/12/23 19:13 Cephalexin Mh500 Mg Capsule PO 03/12/23 19:14 STAT ONE - Progress Progress: unchanged Progress Note: 03/12/23 19:26 62-year-old nondiabetic presented in the ER with chief complaint of left toes area blister with swelling of foot gradually worsening for last few days with minimal dull aching pain. Patient keeps his long shoes on most of the time. D enies any trauma or insect bite. No fever or chills reported. I believe patient has athlete's foot with some bacterial infection and cellulitis fourth toe with extension to dorsum of foot. Given a shot of Rocephin and will continue with Keflex to go home. We will also do nystatin, recommended keeping it dry and outpatient follow-up with podiatry. Discussed signs symptoms of worsening needing return to ER which she seems understanding 03/12/23 19:26 Counseled pt/family regarding: diagnosis, need for follow-up Medical Desision Making - Independent Historian Additional History obtained from: Spouse - Risk of complications The pt has a mod risk of morbidity or mortality based on: Need for prescription drug management - Departure Departure Disposition: Home Clinical Impression: Cellulitis of foot, left, Athlete's foot on left Condition: Stable Critical Care Time: No Referrals: LUCILLE CRAFT, [Primary Care Provider] - Follow up with PCP 2 days HARRIET CALVERT DPM [ACTIVE STAFF] - Follow up/PCP as directed (Call tomorrow for appointment for reevaluation) Instructions: Athlete's Foot (DC), Cellulitis (Skin Infection), Adult ED Additional Instructions: Keep it elevated and keep it dry. Follow-up with primary care and podiatry for reevaluation Return to ER for worsening swelling redness discharge/fever chills etc. Prescriptions: Cephalexin Mh 500 mg [Keflex 500 mg] 500 mg PO TID #21 cap Nystatin Powder 15 gm [Nystop Powder 15 gm] 15 gm TP TID 7 Days #1 packet
[2023-03-12 19:31] VITALS: BP 148/78; PULSE 68
== END 2023-03-12 19:52 | disposition home or self-care (01) ==
LOC: ED 17:56
DX: L03.116 Cellulitis of left lower limb (principal); B35.3 Tinea pedis; I10 Essential (primary) hypertension; Z79.899 Other long term (current) drug therapy; Z72.0 Tobacco use
CPT/HCPCS: 96372; 99283; J0696; A9270-GY

== ENCOUNTER 2024-02-12 06:35 | Day surgery (SDC) | payer MEDICARE ==
[~2024-02-12 06:35] MED LIST: Lactated Ringers 1,000 ML IV ONE
== END 2024-02-12 08:00 | disposition home or self-care (01) ==
LOC: SDC 06:35
PROVIDERS: ATTEND Family Medicine
DX: Z53.8 Procedure and treatment not carried out for other reasons (principal)